=== PATIENT | male | born 2000 | race Caucasian/White ===

== ENCOUNTER 2020-04-19 08:20 | Outpatient (REF) | payer OTHER, SELFPAY | END 2020-04-19 08:21 | disposition home or self-care (01) | LOC: HO.LAB 08:20 | PROVIDERS: Visit Provider Internal Medicine | DX: Z20.822 Contact with and (suspected) exposure to COVID-19 (principal) | CPT/HCPCS: 36415; C9803; U0003; U0005 ==

== ENCOUNTER 2020-05-03 11:17 | Emergency (ER) | payer OTHER, SELFPAY ==
[2020-05-03 11:20] VITALS: BP 136/82; PULSE 78; RESP 16; TEMP 36.7; O2SAT 99; BMI 27.4
--- NOTE | 2020-05-03 12:10 | ED_ITS ---
HPI - General Adult General Chief complaint: General Medical Stated complaint: SORE THROAT Time Seen by Provider: 05/03/20 11:31 Source: patient Mode of arrival: ambulatory History of Present Illness HPI narrative: 19-year-old male to the ED complaining of sore throat x1 week. Also requesting asymptomatic STI testing. Admits is sexually active with multiple partners, states he just wants to make sure he is safe. Denies fever, chills, ear pain, difficulty swallowing/handling secretions, decreased p.o. intake, STI symptoms including penile discharge, testicular or penile pain, dysuria/hematuria, lesions Related Data Previous Rx's Medication Instructions Recorded penicillin V potassium 500 mg PO BID 10 Days #20 tab 05/03/20 Allergies Allergy/AdvReac Type Severity Reaction Status Date / Time No Known Allergies Allergy Unverified 11/02/19 16:57 [No Known Allergies*] Review of Systems Review of Systems: Constitutional: No Fever, No Chills ENT/Mouth: No Ear Pain, No Nasal Congestion, No Sinus Pain, No Hoarseness, +sore throat, No Rhinorrhea, No Swallowing Difficulty Cardiovascular: No Chest Pain, No SOB Respiratory: No Cough Gastrointestinal: No Nausea, No Vomiting Genitourinary: No Dysuria, No Urinary Frequency, No Hematuria, no penile/scrotal pain, no penile lesions, no penile discharge Musculoskeletal: No joint pain Yes all other systems are reviewed and are negative [facility] Past Medical History Attestation statement: The following information was validated with the patient. Medical History (Updated 05/03/20 @ 12:12 by CARMEN Taylor) Heart murmur Surgical History (Updated 05/03/20 @ 11:24 by Karen Jay) History of open heart surgery Social History Social History Advance Directives: No Advance Directives Information Provided: No Physical Exam Vital Signs: Vital Signs: Last Vital Signs Temp 98.1 F 05/03/20 11:20 Pulse 78 05/03/20 11:20 Resp 16 05/03/20 11:20 BP 136/82 05/03/20 11:20 Pulse Ox 99 05/03/20 11:20 Body Mass Index 27.4 Const: General: cooperative and healthy appearing Orientation/consciousness: patient oriented x3 Limitations: no limitations HENMT: Head: Yes normal to inspection Ears: hearing grossly normal bilaterally, external ears normal and TM's normal bilaterally General nose exam: Normal external nose present Face and sinus: Yes normal facial exam Mouth: Normal oral and palatal mucosa present Throat: Yes uvula midline, Yes abnormal tonsil (Bilateral tonsillar swelling and erythema), No peritonsillar mass, No uvula laterally displaced and No uvular edema Eyes: General: appearance normal, both eyes and all related structures EOM: EOMs intact bilaterally Neck: Neck: Yes normal visual inspection, Yes supple and Yes lymphadenopathy (Submandibular) Resp: Effort & Inspection: normal respiratory effort and no stridor Auscultation: no wheezes Cardio: Rate: regular rate : Other: deferred Skin: Rashes: no rashes Wounds: no wounds Neuro: General: patient oriented x3 Extrem: General: Yes normal to inspection Course Course Course Narrative: -UA negative -1300--ED care transferred to [place] [facility] pending COVID-19 results Medical Decision Making [facility] Narrative Medical decision making narrative: 19-year-old male to the ED complaining of sore throat x1 week. Also requesting asymptomatic STI testing. On exam VSS, NAD/well-appearing, physical exam consistent with strep pharyngitis. Will treat with antibiotics. No uvular deviation or evidence of [employer] Plan: Rapid strep, COVID-19, STI testing per request Lab Data Labs: Lab Results 05/03/20 Range/Units 12:10 Urine Color YELLOW Urine Appearance CLEAR Urine pH 5.5 (5.0-8.0) Ur Specific [place] 1.025 (1.005-1.025) Urine Protein NEG (NEG-TRACE) MG/DL Urine Glucose (UA) NEG (NEG) MG/DL Urine Ketones NEG (NEG) MG/DL Urine Blood NEG (NEG) Urine Nitrite NEG (NEG) Ur Leukocyte Esterase NEG (NEG) Discharge Plan Discharge Clinical Impression: Pharyngitis Instructions: Strep Throat (ED) Additional Instructions: Penicillin as antibiotic that will treat strep throat, take as prescribed It is important that you stay hydrated. Take Tylenol and Motrin at home for fever/inflammation You were tested for gonorrhea and chlamydia today in the ED, the results should be back in a couple days, you will be contacted if anything is positive. You should go to [facility] for further STI testing Prescriptions: New penicillin V potassium 500 mg tablet 500 mg PO BID 10 Days Qty: 20 RF: 0 Referrals: Lv Gonzalez MD [Primary Care Provider] - 2 days
[2020-05-03 12:32] LABS: Glucose Urine UA NEG (NEG); Leukocyte Esterase Urine NEG (NEG); Nitrite Urine NEG (NEG); PH 5.5 (5.0-8.0); Specific Gravity - Urine 1.025 (1.005-1.025); Urine Blood NEG (NEG); Urine Ketones NEG (NEG); Urine Protein NEG (NEG-TRACE)
[2020-05-03 12:37] LABS: Appearance Urine CLEAR; Color Urine YELLOW
[2020-05-03] MEDS: Penicillin V Potassium 250 MG TABLET 500 MG PO (12:52)
--- NOTE | 2020-05-03 14:22 | PC.NURSE ---
This RN recieved call from lab who states wrong swab used to collect COVID specimen, Pt called to make aware of new swab needing to be obtained, no answer with contact number in chart.
[2020-05-03 15:15] LABS: CT PCR NOT DETECTED (Not Detect.); NG PCR NOT DETECTED (Not Detect.)
--- NOTE | 2020-05-03 16:34 | PC.NURSE ---
This RN called again and pt aware of new testing needed for COVID swab
== END 2020-05-03 13:29 | disposition home or self-care (01) ==
PROVIDERS: Physician Assistant; Emergency Provider Emergency Medicine Emergency Medical Services; PCP Pediatrics
DX: J02.9 Acute pharyngitis, unspecified (principal); Z11.3 Encounter for screening for infections with a predominantly sexual mode of transmission; F20.9 Schizophrenia, unspecified
CPT/HCPCS: 36415; 81003; 87071; 87491; 87591; 87635; 87880; 99283

== ENCOUNTER 2020-05-07 01:09 | Emergency (ER) | payer OTHER, SELFPAY ==
[2020-05-07] VITALS (10 sets, daily range): BP systolic 123–136; BP diastolic 65–78; PULSE 82–156; RESP 16–24; TEMP 36.6; O2SAT 95–99; BMI 29.0
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
[2020-05-07] MEDS: LORazepam 2 MG/ML VIAL IM (02:06)
[2020-05-07] MEDS: Haloperidol Lactate 5 MG/ML VIAL IM (02:06)
[2020-05-07] MEDS: diphenhydrAMINE HCL 50 MG/ML VIAL IM (02:06)
--- NOTE | 2020-05-07 02:08 | PC.NURSE ---
Patient medicated at 206 with Haldol 5 mg, Ativan 2 mg, and benadryl 50 mg per MD order.
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
--- NOTE | 2020-05-07 04:45 | PC.NURSE ---
[facility] faxed and called. [facility] rep stated that someone would be here to evaluate the PT in the morning.
--- NOTE | 2020-05-07 07:45 | PC.NURSE ---
Addendum entered by Peace Oconnell 05/07/20 10:22: note entered under wrong RN this RN wrote note Original Note: PT WAITING FOR [facility] EVALUATION, STATES HE WANTS TO LEAVE.
--- NOTE | 2020-05-07 11:33 | PC.NURSE ---
seen by care team waiting for plan
--- NOTE | 2020-05-07 13:22 | MHC.CARE ---
0930 CARE Team met with patient in bed 8 in the ED, he was alert and oriented, engaged to a point--he did answer questions but briefly without details. In speaking about the events of last night, he stated that he may have said something concerning to the person who called the police, would not elaborate but was surprised that the police came to his house when he was in bed and made him leave. Patient said this is an ex girlfriend and she is unstable. He denied having any suicidal thoughts, plans or intention; said he wants to live. Admitted having a history of self-harming and suicidal thinking as a youth, several years ago. Currently patient is engaged in therapy though [facility] in [place], does not have a psychiatrist, is not interested in medication. Denied being under the influence of drugs or alcohol yesterday, there was no toxicology results. Collateral calls to [facility] and to patient?s father to obtain history and ask about recent concerns. Patient called crisis for support on 05/02/20, appears to have been calm and thoughtful discussed coping skills with clinician. Call to patient?s father ([phone]) who stated that he does not have concerns about his son's mental health, has not made any statements or done anything concerning; there are no guns in the home. In addition, he reported that his son has never personally met the woman, she lives in [place] they talk on the phone and text frequently. He was very distressed about how they were treated by the police, said they were unnecessarily rough and cruel to his son. Recommendation is for discharge to home, call [facility] for support or return to the ED if needed. Updated ED provider.
== END 2020-05-07 12:08 | disposition home or self-care (01) ==
PROVIDERS: Emergency Provider Emergency Medicine
DX: F32.9 Major depressive disorder, single episode, unspecified (principal); R45.851 Suicidal ideations; Z91.5 Personal history of self-harm; F20.9 Schizophrenia, unspecified; F43.10 Post-traumatic stress disorder, unspecified
CPT/HCPCS: 96372; 99285; J1200; J2060

== ENCOUNTER 2020-06-01 22:19 | Emergency (ER) | payer OTHER, SELFPAY ==
--- NOTE | ~2020-06-01 | XR_ITS ---
EXAMINATION: XR SHOULDER, RIGHT CLINICAL INFORMATION: Right shoulder pain. COMPARISON: None TECHNIQUE: AP external rotation, Grashey, scapular Y, and axillary views of the right shoulder. FINDINGS: The bones and soft tissues are normal. No fracture. Glenohumeral and acromioclavicular alignment is anatomic with normal joint space. No abnormal soft tissue calcifications. XR/XR shoulder RT min 2V IMPRESSION: Unremarkable examination.
--- NOTE | ~2020-06-01 | XR_ITS ---
EXAMINATION: XR CERVICAL SPINE CLINICAL INFORMATION: Neck and shoulder pain. COMPARISON: None TECHNIQUE: 3 views of the cervical spine were obtained. FINDINGS: Straightening of the normal cervical lordosis, which may be positional or related to muscular spasm. No acute fracture or subluxation. Normal atlantoaxial alignment. No loss of vertebral body or intervertebral disc height. No lytic or blastic osseous lesion. No abnormal soft tissue calcification. Unremarkable prevertebral soft tissues. XR/XR cervical spine 2V IMPRESSION: Straightening of the normal cervical lordosis, which may be positional or related to muscular spasm.
[2020-06-01 22:32] VITALS: BP 112/61; PULSE 76; RESP 16; TEMP 36.6; O2SAT 97; BMI 34.3
[2020-06-01 23:43] VITALS: BP 104/60; PULSE 77; RESP 16; TEMP 36.6; O2SAT 98
--- NOTE | 2020-06-01 23:55 | ED.EXTPRO ---
HPI - Extremity Problem General Chief complaint: Extremity Problem Stated complaint: sholder pain Time Seen by Provider: 06/01/20 23:54 Source: patient Mode of arrival: ambulatory Limitations: no limitations History of Present Illness HPI Narrative: 20-year-old male with past medical history of cardiac murmur present since childhood and schizophrenia presents with right shoulder and neck spasms. He does not report any trauma, or injury, denies repetitive motion. States that he is normally sedentary and occasionally has shoulder pain that pulls up into his neck. He is slow to respond to certain questions, but answers questions thoughtfully. He has full range of motion to all extremities, and denies loss of strength. He denies jaw pain, chest pain, chest pressure, palpitations, shortness of breath, shortness of breath on exertion, numbness, tingling, and any other concerning symptoms. MD Complaint: extremity pain Onset (ago): month(s) Pain Consistency: intermittent Location: right and upper extremity Severity scale (1-10): 7 Quality: stabbing and aching Radiation: proximal Relieving factors: nothing Exacerbating factors: palpation Associated symptoms: denies other symptoms Related Data Previous Rx's Medication Instructions Recorded penicillin V potassium 500 mg PO BID 10 Days #20 tab 05/03/20 cyclobenzaprine 10 mg PO TID PRN #14 tab 06/02/20 Allergies Allergy/AdvReac Type Severity Reaction Status Date / Time No Known Allergies Allergy Verified 06/01/20 22:31 [No Known Allergies*] Review of Systems Review of Systems: Constitutional: No Fever, No Chills ENT/Mouth: No Ear Pain, No Hoarseness, No sore throat Eyes: No Eye Pain, No Swelling, No Redness, No Foreign Body Cardiovascular: No Chest Pain, No SOB Respiratory: No Cough, No Dyspnea Gastrointestinal: No Nausea, No Vomiting, No Diarrhea, No abdominal Pain Genitourinary: No Dysuria, No Hematuria Musculoskeletal: positive neck and right shoulder pain, No Myalgias, No Joint Swelling Skin: No Skin lacerations, No rash Neuro: No Weakness, No Numbness, No Paresthesias, No Loss of Consciousness, No Dizziness, No Headache Psych: No Anxiety/Panic, No Depression Heme/Lymph: no easy bruising, no Lymphadenopathy Endocrine: No Polyuria, No Polydipsia Yes all other systems are reviewed and are negative [facility] Past Medical History Attestation statement: The following information was validated with the patient. Source: old records reviewed Medical History Heart murmur Schizophrenia Surgical History History of open heart surgery Social History Social History Alcohol intake: unknown Smoking Status: Unknown if ever smoked Advance Directives: No Advance Directives Information Provided: No Physical Exam Vital Signs: Vital Signs: Last Vital Signs Temp 97.9 F 06/01/20 23:43 Pulse 77 06/01/20 23:43 Resp 16 06/01/20 23:43 BP 104/60 06/01/20 23:43 Pulse Ox 98 06/01/20 23:43 Body Mass Index 34.3 Appearance: Alert. Oriented X3. No acute distress. Eyes: Pupils equal, round and reactive to light. ENT: Pharynx normal. Neck: Normal inspection. Neck supple. CVS: Normal heart rate and rhythm. Pulses normal. Respiratory: No respiratory distress. Breath sounds normal. Abdomen: Soft and nontender. Skin: Skin warm and dry. Normal skin color. Normal skin turgor. Extremities: No lower extremity edema. Full range of motion to all extremities, strength 5/5. Neuro: No motor deficit. No sensory deficit. Cranial nerves 2-12 intact. No focal neural deficits. Course Course Course Narrative: 20-year-old male with past medical history of childhood murmur, and schizophrenia presents with right shoulder pain radiating up to his neck. Describes it as a spasming feeling at times. Will order x-ray of cervical spine and right shoulder. Cervical spine and shoulder x-rays are negative for acute findings requiring emergent intervention. Does indicate spasming, will order cyclobenzaprine to help with spasms. Patient verbalized understanding of and agrees plan of care discharge home. MDM - Extremity (Nontraumatic) MDM Narrative Medical decision making narrative: Muscular strain, disc degeneration Medical Records Attestation: I reviewed the patient's medical records. Imaging Data Cervical spine x-ray: Attestation: I personally reviewed and interpreted this imaging study as follows: Radiologist's impression: EXAMINATION: XR CERVICAL SPINE CLINICAL INFORMATION: Neck and shoulder pain. COMPARISON: None TECHNIQUE: 3 views of the cervical spine were obtained. FINDINGS: Straightening of the normal cervical lordosis, which may be positional or related to muscular spasm. No acute fracture or subluxation. Normal atlantoaxial alignment. No loss of vertebral body or intervertebral disc height. No lytic or blastic osseous lesion. No abnormal soft tissue calcification. Unremarkable prevertebral soft tissues. XR/XR cervical spine 2V IMPRESSION: Straightening of the normal cervical lordosis, which may be positional or related to muscular spasm. Right shoulder x-ray: Attestation: I personally reviewed and interpreted this imaging study as follows: Radiologist's impression: EXAMINATION: XR SHOULDER, RIGHT CLINICAL INFORMATION: Right shoulder pain. COMPARISON: None TECHNIQUE: AP external rotation, Grashey, scapular Y, and axillary views of the right shoulder. FINDINGS: The bones and soft tissues are normal. No fracture. Glenohumeral and acromioclavicular alignment is anatomic with normal joint space. No abnormal soft tissue calcifications. XR/XR shoulder RT min 2V IMPRESSION: Unremarkable examination. Discharge Plan Discharge Clinical Impression: Muscle spasm Patient Disposition: Home, Self-Care Instructions: Shoulder Pain (ED), Acute Neck Pain (ED) Additional Instructions: You were evaluated for right shoulder pain radiating up to the neck. X-rays are normal, did not show any indication of disc degeneration, fracture, or dislocation. This could be muscle spasms. We will treat you with cyclobenzaprine. This medication is a muscle relaxer. This medication may decrease reaction time, increased risk for drowsiness, and falls. Do not drive or operate machinery while taking this medication. You may consider following up with your primary care provider for physical therapy referral. Thank you for choosing this emergency department for evaluation. Please follow-up with primary care physician as needed. Return to the emergency department for any new, concerning, or worsening symptoms. Prescriptions: New cyclobenzaprine 10 mg tablet 10 mg PO TID PRN (Reason: muscle spasm) Qty: 14 RF: 0 No Action penicillin V potassium 500 mg tablet 500 mg PO BID 10 Days Qty: 20 RF: 0
== END 2020-06-02 00:18 | disposition home or self-care (01) ==
PROVIDERS: Emergency Provider Emergency Medicine; PCP Pediatrics
DX: M62.838 Other muscle spasm (principal); M25.511 Pain in right shoulder; M54.2 Cervicalgia
CPT/HCPCS: 72040; 73030; 99284

== ENCOUNTER 2020-11-22 01:00 | Emergency (ER) | payer OTHER, SELFPAY ==
[2020-11-22 01:06] VITALS: BP 150/78; O2SAT 96
[2020-11-22 01:11] VITALS: BP 130/65; PULSE 93; RESP 16; TEMP 37.2; O2SAT 97; BMI 27.4
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
== END 2020-11-22 01:50 | disposition home or self-care (01) ==
PROVIDERS: Emergency Provider Emergency Medicine
DX: S01.511A Laceration without foreign body of lip, initial encounter (principal); Y04.2XXA Assault by strike against or bumped into by another person, initial encounter; Y93.9 Activity, unspecified; Y92.410 Unspecified street and highway as the place of occurrence of the external cause; Y99.9 Unspecified external cause status
CPT/HCPCS: 99283; 99284

== ENCOUNTER 2021-02-26 21:37 | Emergency (ER) | payer OTHER, SELFPAY ==
[2021-02-26 21:49] VITALS: BP 138/87; PULSE 88; RESP 17; TEMP 37.2; O2SAT 99; BMI 31.7
[2021-02-26 21:54] LABS: Glucose, Whole Blood 79 mg/dL (60-115)
[2021-02-26 22:19] LABS: COVID-19 Test Negative (Negative)
[2021-02-26 22:21] LABS: Amphetamine Screen Urine Not Detected (Not Detect); Barbiturates, Urine Not Detected (Not Detect); Benzodiazepines Screen Urine Not Detected (Not Detect); Cannabinoid Screen Urine POSITIVE (Not Detect); Cocaine Screen Urine Not Detected (Not Detect); Fentanyl, urine Not Detected (Not Detect); Opiate Screen Urine Not Detected (Not Detect); Phencyclidine Screen Urine Not Detected (Not Detect)
[2021-02-26 22:26] LABS: MANUAL DIFF FLAG NO
[2021-02-26 22:29] LABS: Basophils Percent Auto 0.5 % (0-2); Eosinophils Absolute Auto 0.1 X10*3/uL (0.0-0.4); Eosinophils Percent Auto 0.9 % (0-4); Hematocrit 47.1 % (42.0-52.0); Hemoglobin 15.9 g/dl (14.0-18.0); Imm Gran Abs Auto 0.02 X10*3/uL (0.00-0.03); Imm Gran Pct Auto 0.2 % (0.0-0.4); Lymphocytes Absolute Auto 1.8 X10*3/uL (1.2-4.9); Lymphocytes Percent Auto 21.6 % (20-40); Mean Corpuscular HGB Conc 33.8 g/dl (31.0-36.0); Mean Corpuscular Volume 85.8 fL (80.0-98.0); Mean Platelet Volume 10.7 fL (9.4-12.4); Monocytes Absolute Auto 0.6 X10*3/uL (0.1-1.2); Monocytes Percent Auto 7.4 % (2-11); Neutrophils Absolute Auto 5.6 x10*3/uL (2.0-8.3); Neutrophils Percent Auto 69.4 % (45-73); Platelet Count 266 X10*3/uL (160-400); Red Blood Count 5.49 X10*6/uL (4.60-5.80); Red Cell Distribution Width 12.8 % (11.0-16.0); White Blood Count 8.1 X10*3/uL (4.8-10.8)
--- NOTE | 2021-02-26 22:31 | ED.PSYCH ---
HPI - Psych General Chief Complaint: Psychiatric Symptoms Stated Complaint: Psyc Eval Time Seen by Provider: 02/26/21 22:31 Source: patient Mode of arrival: EMS Limitations: no limitations History of Present Illness HPI Narrative: This is a 20-year-old male presents to the emergency department with a chief complaint of agitation. Patient tells me that he lives at home with his father, today use feeling upset, his brother who does not live with him came over noted that patient had self-inflicted wounds to his left ventral forearm, patient tells me that recently he has been feeling ?numb ?so he decided to cut himself so he could feel something. Tells me he has a history of schizo affective disorder, PTSD, anxiety and depression. He tells me that he is not suicidal or homicidal. He denies visual, auditory and tactile hallucinations. He denies drug, alcohol and tobacco use. No medical complaints at this time MD complaint: feels depressed and anxiety Onset (ago): day(s) (1) Duration: constant History of same: Yes Relieving factors: other (Cutting.) Exacerbating factors: none Associated psychiatric symptoms: none Associated symptoms: denies other symptoms Treatments prior to arrival: none Related Data Previous Rx's Medication Instructions Recorded penicillin V potassium 500 mg 500 mg PO BID 10 Days #20 tab 05/03/20 tablet cyclobenzaprine 10 mg tablet 10 mg PO TID PRN #14 tab 06/02/20 Allergies Allergy/AdvReac Type Severity Reaction Status Date / Time No Known Allergies Allergy Verified 06/01/20 22:31 [No Known Allergies*] Review of Systems Review of Systems: Constitutional : No Fever, No Chills ENT/Mouth : No sore throat, No Rhinorrhea Eyes: No Eye Pain, No Swelling, No Redness Cardiovascular : No Chest Pain, No SOB Respiratory : No Cough, No Sputum Gastrointestinal : No Nausea, No Vomiting, No Diarrhea, No abdominal Pain Genitourinary : No Dysuria, No Hematuria Musculoskeletal : No joint pain, No Myalgias, No Joint Swelling Skin : No Skin Lesions, No rash Neuro : No Weakness, No Numbness Psych : No Anxiety, No Depression, No SI/HI/AH/VH All other systems reviewed and are negative Yes all other systems are reviewed and are negative PMFSH Past Medical History Attestation statement: The following information was validated with the patient. Source: old records reviewed and nursing notes reviewed Medical History Heart murmur Schizophrenia Surgical History History of open heart surgery Social History Social History Alcohol intake: unknown Patient Tobacco Use Status: Never used Tobacco Advance Directives: No Physical Exam Vital Signs: Vital Signs: Last Vital Signs Temp 98.9 F 02/26/21 21:49 Pulse 88 02/26/21 21:49 Resp 17 02/26/21 21:49 BP 138/87 02/26/21 21:49 Pulse Ox 99 02/26/21 21:49 BMI result Body Mass Index 31.7 Vital signs stable Appearance: Alert.? Oriented X3.? No acute distress.? Head: Normocephalic, atraumatic, no step-offs or deformities Eyes: Pupils equal, round and reactive to light.? ENT: Pharynx normal.? Neck: Normal inspection.? Neck supple.? CVS: Normal heart rate and rhythm.? Pulses normal.? Respiratory: No respiratory distress.? Breath sounds normal.? Abdomen: Soft and nontender.? Skin: Skin warm and dry.? Normal skin color.? Normal skin turgor.? Extremities: No lower extremity edema.? No calf ttp. 5/5 strength to bilateral upper and lower extremities Back: No midline tenderness, no C-spine tenderness, full range of motion, no CVA tenderness bilaterally Neuro: Oriented X 3.? No motor deficit.? No sensory deficit. Cranial nerves 2-12 intact. Course Reevaluation(s) Reevaluation #1: No leukocytosis, no anemia, no acute electrolyte abnormalities, point of care within normal limits, urine toxicology positive for marijuana, COVID negative. At this time patient will be placed in physician observation to allow more time for evaluation by the behavioral health team. At time that observation was started patient was, cooperative. Denying SI and HI. Vital signs are stable. Physical exam unchanged from initial. Will continue to monitor Time: 22:36 MDM - Psych MDM Narrative Medical decision making narrative: [age] yo m presents via ambulance feeling aggitated, tells me brother called ems lyn[place] he cut himself tells me he feels numb and cut himself so he could feel something. Hx schizoaffective disorder, PTSD, anxiety, depression. He tells me he is not on medication. He is not followed by psychiatrist or therapist. No medical complaints. Physical examination benign cranial nerves 2-12 intact. Plan at this time is to obtain basic labs, urine, toxicology, COVID Medical Records Attestation: I reviewed the patient's medical records. Lab Data Attestation: I reviewed the patient's lab results. Result diagrams: 02/26/21 22:21 02/26/21 22:21 Labs: Lab Results 02/26/21 02/26/21 02/26/21 Range/Units 21:49 21:58 21:58 WBC (4.8-10.8) X10*3/uL RBC (4.60-5.80) X10*6/uL Hgb (14.0-18.0) g/dl Hct (42.0-52.0) % MCV (80.0-98.0) fL MCH (27.0-33.0) pg MCHC (31.0-36.0) g/dl RDW (11.0-16.0) % Plt Count (160-400) X10*3/uL MPV (9.4-12.4) fL Immature Gran % (Auto) (0.0-0.4) % Neut % (Auto) (45-73) % Lymph % (Auto) (20-40) % [place] % (Auto) (2-11) % Eos % (Auto) (0-4) % Baso % (Auto) (0-2) % Lymph # (Auto) (1.2-4.9) X10*3/uL [place] # (Auto) (0.1-1.2) X10*3/uL Eos # (Auto) (0.0-0.4) X10*3/uL Baso # (Auto) (0.0-0.2) X10*3/uL Abs Immat Gran (auto) (0.00-0.03) X10*3/uL Absolute Neuts (auto) (2.0-8.3) x10*3/uL Absolute Nucleated RBC (0.0-0.012) X10*3/uL Nucleated RBC % (auto) (0.0-0.2) /100WBC POC Glucose 79 (60-115) mg/dL Urine Opiates Screen Not Detected (Not Detect) Urine Fentanyl Screen Not Detected (Not Detect) Ur Barbiturates Screen Not Detected (Not Detect) Ur Phencyclidine Scrn Not Detected (Not Detect) Ur Amphetamines Screen Not Detected (Not Detect) U Benzodiazepines Scrn Not Detected (Not Detect) Urine Cocaine Screen Not Detected (Not Detect) U Marijuana (THC) Screen POSITIVE H (Not Detect) COVID-19 ([facility]) Negative (Negative) COVID-19 Clin Com See Note 02/26/21 Range/Units 22:21 WBC 8.1 (4.8-10.8) X10*3/uL RBC 5.49 (4.60-5.80) X10*6/uL Hgb 15.9 (14.0-18.0) g/dl Hct 47.1 (42.0-52.0) % MCV 85.8 (80.0-98.0) fL MCH 29.0 (27.0-33.0) pg MCHC 33.8 (31.0-36.0) g/dl RDW 12.8 (11.0-16.0) % Plt Count 266 (160-400) X10*3/uL MPV 10.7 (9.4-12.4) fL Immature Gran % (Auto) 0.2 (0.0-0.4) % Neut % (Auto) 69.4 (45-73) % Lymph % (Auto) 21.6 (20-40) % [place] % (Auto) 7.4 (2-11) % Eos % (Auto) 0.9 (0-4) % Baso % (Auto) 0.5 (0-2) % Lymph # (Auto) 1.8 (1.2-4.9) X10*3/uL [place] # (Auto) 0.6 (0.1-1.2) X10*3/uL Eos # (Auto) 0.1 (0.0-0.4) X10*3/uL Baso # (Auto) 0.0 (0.0-0.2) X10*3/uL Abs Immat Gran (auto) 0.02 (0.00-0.03) X10*3/uL Absolute Neuts (auto) 5.6 (2.0-8.3) x10*3/uL Absolute Nucleated RBC 0.000 (0.0-0.012) X10*3/uL Nucleated RBC % (auto) 0.0 (0.0-0.2) /100WBC POC Glucose (60-115) mg/dL Urine Opiates Screen (Not Detect) Urine Fentanyl Screen (Not Detect) Ur Barbiturates Screen (Not Detect) Ur Phencyclidine Scrn (Not Detect) Ur Amphetamines Screen (Not Detect) U Benzodiazepines Scrn (Not Detect) Urine Cocaine Screen (Not Detect) U Marijuana (THC) Screen (Not Detect) COVID-19 ([facility]) (Negative) COVID-19 Clin Com Critical Care Time Critical Care Time Critical Care Time: No Discharge Plan Discharge Clinical Impression: Acute anxiety, Depression Patient Disposition: Still a Patient Prescriptions: No Action penicillin V potassium 500 mg tablet 500 mg PO BID 10 Days Qty: 20 RF: 0 cyclobenzaprine 10 mg tablet 10 mg PO TID PRN (Reason: muscle spasm) Qty: 14 RF: 0
[2021-02-26 22:46] LABS: Ethanol < 10 mg/dL
[2021-02-26 22:49] LABS: Anion Gap 11 (12-20); Blood Urea Nitrogen 10 mg/dL (9-16); Calcium 9.2 mg/dL (8.4-10.2); Carbon Dioxide 23 mmol/L (22-29); Chloride 107 mmol/L (96-108); Creatinine Clr Calc Pharmacy 133.8; Estimated Glomerular Filt Rate > 60; Glucose Random 93 mg/dL (60-115); Potassium 3.9 mmol/L (3.3-5.1); Sodium 137 mmol/L (135-145)
[2021-02-26 23:18] VITALS: BP 126/62; PULSE 76; RESP 18; TEMP 37.1; O2SAT 98
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
--- NOTE | 2021-02-27 07:22 | PC.NURSE ---
Report received. PT currently sleeping, respirations even and unlabored, in no apparent distress. PT is waiting to be seen by N.
[2021-02-27 08:06] VITALS: BP 120/62; PULSE 70; RESP 18; TEMP 36.8; O2SAT 96
--- NOTE | 2021-02-27 08:33 | PC.NURSE ---
PT reports that he has an appointment today at 11am at his home to get outpatient services that would help him with medications and treatment. PT asking if he will be home in time for that. Plan of care explained, pt states he unsure of what company is coming to see him and has no contact information.
== END 2021-02-27 09:36 | disposition home or self-care (01) ==
PROVIDERS: Emergency Provider Emergency Medicine
DX: R45.1 Restlessness and agitation (principal); F41.9 Anxiety disorder, unspecified; F32.A Depression, unspecified; Z20.822 Contact with and (suspected) exposure to COVID-19; R45.851 Suicidal ideations; F25.9 Schizoaffective disorder, unspecified; F43.10 Post-traumatic stress disorder, unspecified; F12.90 Cannabis use, unspecified, uncomplicated
CPT/HCPCS: 36415; 80048; 80307; 82077; 82947; 85025; 87635; 99283; 99285

== ENCOUNTER 2021-02-27 12:49 | Emergency (ER) | payer OTHER, SELFPAY ==
[2021-02-27 13:39] VITALS: BP 132/68; PULSE 85; RESP 16; TEMP 36.7; O2SAT 96; BMI 34.3
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
[2021-02-27 14:16] VITALS: BP 132/68; PULSE 85; RESP 16; TEMP 36.7; O2SAT 96
[2021-02-27 14:56] LABS: Amphetamine Screen Urine Not Detected (Not Detect); Barbiturates, Urine Not Detected (Not Detect); Benzodiazepines Screen Urine Not Detected (Not Detect); Cannabinoid Screen Urine POSITIVE (Not Detect); Cocaine Screen Urine Not Detected (Not Detect); Fentanyl, urine Not Detected (Not Detect); Opiate Screen Urine Not Detected (Not Detect); Phencyclidine Screen Urine Not Detected (Not Detect)
[2021-02-27 15:09] LABS: COVID-19 Test Negative (Negative)
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
[2021-02-27 17:39] VITALS: BP 110/49; PULSE 67; RESP 15; TEMP 36.8; O2SAT 98
[2021-02-28 00:24] VITALS: BP 119/55; PULSE 64; RESP 20; TEMP 36.9; O2SAT 98
--- NOTE | 2021-02-28 05:51 | PC.NURSE ---
Patient slept through the night, no distress observed/reported, behavior appropriate and non concerning at this time, patient is currently not on any medication, patient was assessed by [facility] in the community with disposition section 12 inpatient bed search per care team report, VSS, will continue to monitor.
--- NOTE | 2021-02-28 07:18 | PC.NURSE ---
patient appears in no distress at present, respirations are even and unlabored patient appears in no distress.
[2021-02-28 09:41] LABS: Basophils Percent Auto 0.3 % (0-2); Eosinophils Absolute Auto 0.1 X10*3/uL (0.0-0.4); Eosinophils Percent Auto 0.8 % (0-4); Hematocrit 50.7 % (42.0-52.0); Hemoglobin 17.3 g/dl (14.0-18.0); Imm Gran Abs Auto 0.01 X10*3/uL (0.00-0.03); Imm Gran Pct Auto 0.1 % (0.0-0.4); Lymphocytes Absolute Auto 1.4 X10*3/uL (1.2-4.9); Lymphocytes Percent Auto 18.9 % (20-40); MANUAL DIFF FLAG SCAN; Mean Corpuscular HGB Conc 34.1 g/dl (31.0-36.0); Mean Corpuscular Hemoglobin 29.2 pg (27.0-33.0); Mean Corpuscular Volume 85.5 fL (80.0-98.0); Monocytes Absolute Auto 0.6 X10*3/uL (0.1-1.2); Monocytes Percent Auto 7.7 % (2-11); Neutrophils Absolute Auto 5.2 x10*3/uL (2.0-8.3); Neutrophils Percent Auto 72.2 % (45-73); PLT CLUMP 1; Red Blood Count 5.93 X10*6/uL (4.60-5.80); SCAN SMEAR FLAG 1
--- NOTE | 2021-02-28 09:45 | PC.NURSE ---
asked client permission to speak to Frank- client declined
[2021-02-28 09:58] LABS: Alanine Aminotransferase 18 U/L (0-40); Albumin Level 4.4 g/dL (3.5-5.0); Alkaline Phosphatase 170 U/L (39-117); Anion Gap 9 (12-20); Aspartate Amino Transferase 15 U/L (5-37); Bilirubin Direct 0.3 mg/dL (0.0-0.5); Bilirubin Total 0.6 mg/dL (0.0-1.0); Blood Urea Nitrogen 12 mg/dL (9-16); Calcium 9.5 mg/dL (8.4-10.2); Carbon Dioxide 23 mmol/L (22-29); Chloride 108 mmol/L (96-108); Creatinine Clr Calc Pharmacy 131.5; Estimated Glomerular Filt Rate > 60; Glucose Random 93 mg/dL (60-115); Potassium 4.3 mmol/L (3.3-5.1); Sodium 136 mmol/L (135-145); Total Protein 6.9 g/dL (6.5-8.0)
[2021-02-28 09:59] LABS: Platelet Count 195 X10*3/uL (160-400); White Blood Count 7.2 X10*3/uL (4.8-10.8)
[2021-02-28 10:00] LABS: SLIDE REVIEW VERIFIED
--- NOTE | 2021-02-28 11:00 | MHC.CARE ---
CARE Team received a call from Pts brother who is upset regarding Pts care related to [facility]. CARE Team provided information and support to Pts brother.
== END 2021-02-28 13:06 | disposition other institution (70) ==
PROVIDERS: Physician Assistant; Emergency Provider Emergency Medicine
DX: R45.851 Suicidal ideations (principal); F32.A Depression, unspecified; F41.8 Other specified anxiety disorders; Z20.822 Contact with and (suspected) exposure to COVID-19; F20.9 Schizophrenia, unspecified; F43.10 Post-traumatic stress disorder, unspecified; F12.90 Cannabis use, unspecified, uncomplicated
CPT/HCPCS: 36415; 80048; 80076; 80307; 85025; 87635; 99284; 99285

== ENCOUNTER 2021-03-28 18:19 | Inpatient (IN) | payer MEDICAID, OTHER, SELFPAY ==
[2021-03-28 18:27] VITALS: BP 127/76; PULSE 103; RESP 18; TEMP 37.4; O2SAT 98; BMI 32.5
[2021-03-28] MEDS: Acetaminophen 325 MG TABLET 650 MG PO (18:35)
[2021-03-28 19:19] LABS: COVID-19 Test Negative (Negative); IDNOW Serial# 9DD0AD1C
[2021-03-28 19:20] LABS: Amphetamine Screen Urine Not Detected (Not Detect); Barbiturates, Urine Not Detected (Not Detect); Benzodiazepines Screen Urine Not Detected (Not Detect); Cannabinoid Screen Urine POSITIVE (Not Detect); Cocaine Screen Urine Not Detected (Not Detect); Fentanyl, urine Not Detected (Not Detect); Opiate Screen Urine Not Detected (Not Detect); Phencyclidine Screen Urine Not Detected (Not Detect)
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
[2021-03-28] MEDS: OLANZapine 5 MG TABLET PO (22:43)
[2021-03-28] MEDS: Carbamide Peroxide 6.5% Otic 15 ML DRPBTL 5 DROP EAR-BOTH (22:43)
--- NOTE | 2021-03-29 06:03 | PC.NURSE ---
Patient slept through the night, no distress observed/reported, behavior appropriate and non concerning at this time, medication compliant, [facility] screened during overnight shift, disposition section 12 inpatient bed search, will continue to monitor.
[2021-03-29 06:45] VITALS: BP 138/70; PULSE 70; RESP 18; TEMP 36.7; O2SAT 97
--- NOTE | 2021-03-29 07:02 | PC.NURSE ---
patient appears to remain asleep at present respirations are even and unlabored patient appears in no distress
[2021-03-29] MEDS: OLANZapine 5 MG TABLET PO (20:33)
--- NOTE | 2021-03-30 06:06 | PC.NURSE ---
Patient slept through the night, no distress observed/reported, behavior appropriate and non concerning at this time, medication compliant, disposition per [facility] is section 12 inpatient bed search, will continue to monitor.
--- NOTE | 2021-03-30 07:05 | PC.NURSE ---
patient appears to remain asleep at present respirations are even and unlabored patient appears in no distress
[2021-03-30 16:46] VITALS: BP 104/60; PULSE 77; RESP 18; TEMP 36.4; O2SAT 98
--- NOTE | 2021-03-30 17:00 | PC.NURSE ---
client seems mildly intrusive asking for snacks and miscellaneous items about every 30 minutes.
[2021-03-30] MEDS: OLANZapine 5 MG TABLET PO (20:39)
--- NOTE | 2021-03-31 | ECG_ITS ---
Test Reason : MED CLEARANCE Blood Pressure : / mmHG Vent. Rate : 083 BPM Atrial Rate : 083 BPM P-R Int : 168 ms QRS Dur : 172 ms QT Int : 414 ms P-R-T Axes : 017 -54 046 degrees QTc Int : 486 ms Normal sinus rhythm Right bundle branch block Left anterior fascicular block Bifascicular block Minimal voltage criteria for LVH, may be normal variant ( R in aVL ) Abnormal ECG No previous ECGs available Referred By: Kristin Ott Electronically Signed By:KEYONA DIAZ MD
[2021-03-31 05:53] VITALS: BP 107/57; PULSE 58; RESP 16; TEMP 36.4; O2SAT 99
--- NOTE | 2021-03-31 06:12 | PC.NURSE ---
Patient slept through the night, no distress observed/reported, behavior social, pleasant, and non concerning, medication compliant, disposition per [facility] is section 12 inpatient bed search, patient is pre-accepted to M[facility], VSS, will continue to monitor.
--- NOTE | 2021-03-31 07:06 | PC.NURSE ---
patient appears to remain asleep at present respirations are even and unlabored patient appears in no distress
[2021-03-31 10:19] LABS: MANUAL DIFF FLAG NO
[2021-03-31 10:21] LABS: Basophils Percent Auto 0.5 % (0-2); Eosinophils Absolute Auto 0.1 X10*3/uL (0.0-0.4); Eosinophils Percent Auto 1.7 % (0-4); Hematocrit 49.4 % (42.0-52.0); Hemoglobin 16.6 g/dl (14.0-18.0); Imm Gran Abs Auto 0.01 X10*3/uL (0.00-0.03); Imm Gran Pct Auto 0.2 % (0.0-0.4); Lymphocytes Absolute Auto 1.3 X10*3/uL (1.2-4.9); Lymphocytes Percent Auto 20.6 % (20-40); Mean Corpuscular HGB Conc 33.6 g/dl (31.0-36.0); Mean Corpuscular Hemoglobin 28.8 pg (27.0-33.0); Mean Corpuscular Volume 85.6 fL (80.0-98.0); Mean Platelet Volume 10.2 fL (9.4-12.4); Monocytes Absolute Auto 0.5 X10*3/uL (0.1-1.2); Monocytes Percent Auto 8.2 % (2-11); Neutrophils Absolute Auto 4.4 x10*3/uL (2.0-8.3); Neutrophils Percent Auto 68.8 % (45-73); Platelet Count 231 X10*3/uL (160-400); Red Blood Count 5.77 X10*6/uL (4.60-5.80); Red Cell Distribution Width 13.4 % (11.0-16.0); White Blood Count 6.4 X10*3/uL (4.8-10.8)
[2021-03-31 10:38] LABS: COVID-19 Test Negative (Negative)
[2021-03-31 10:55] LABS: Alanine Aminotransferase 22 U/L (0-40); Albumin Level 4.3 g/dL (3.5-5.0); Alkaline Phosphatase 153 U/L (39-117); Anion Gap 9 (12-20); Aspartate Amino Transferase 15 U/L (5-37); Bilirubin Total 0.4 mg/dL (0.0-1.0); Blood Urea Nitrogen 9 mg/dL (9-16); Calcium 9.3 mg/dL (8.4-10.2); Carbon Dioxide 26 mmol/L (22-29); Chloride 108 mmol/L (96-108); Creatinine Clr Calc Pharmacy 149.5; Estimated Glomerular Filt Rate > 60; Glucose Random 92 mg/dL (60-115); Potassium 4.2 mmol/L (3.3-5.1); Sodium 139 mmol/L (135-145); Total Protein 6.5 g/dL (6.5-8.0)
--- NOTE | 2021-03-31 11:04 | PC.NURSE ---
intrusive and antagonistic, makes quiet provocative statements under his breath to seemingly irritate staff
--- NOTE | 2021-03-31 16:10 | PC.NURSE ---
Nurse to nurse given to m5 staff. pt being admitted to [facility].
[2021-03-31 16:12] VITALS: BP 127/57; PULSE 72; RESP 15; TEMP 37.1; O2SAT 97
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
--- NOTE | 2021-03-31 18:39 | PC.NURSE ---
Patient is alert and oriented x 4 verbalized understanding of admission to 517-2. escorted to via wheelchair, staff, security and belongings
[2021-03-31 19:05] VITALS: BP 134/79; PULSE 79; RESP 18; TEMP 36.5; O2SAT 97
--- NOTE | 2021-03-31 19:13 | ECG_ITS ---
Test Reason : increased qtc Blood Pressure : / mmHG Vent. Rate : 074 BPM Atrial Rate : 074 BPM P-R Int : 170 ms QRS Dur : 154 ms QT Int : 416 ms P-R-T Axes : 022 -40 058 degrees QTc Int : 461 ms Normal sinus rhythm Left axis deviation Right bundle branch block Abnormal ECG When compared with ECG of 31-MAR-2021 13:05, No significant changes seen Referred By: Ismael Persaud Electronically Signed By:KEYONA DIAZ MD
[2021-03-31] MEDS: Acetaminophen 325 MG TABLET 650 MG PO (20:54)
[2021-03-31] MEDS: OLANZapine 10 MG TABLET PO (20:54)
[2021-03-31] MEDS: hydrOXYzine HCL 25 MG TABLET PO (20:56)
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
[2021-04-01 06:00] VITALS: BP 120/56; PULSE 80; RESP 16; TEMP 36.6; O2SAT 98
[2021-04-01 08:51] VITALS: BP 127/59; PULSE 96; RESP 14; TEMP 37.2; O2SAT 97
[2021-04-01 08:52] LABS: Alanine Aminotransferase 20 U/L (0-40); Albumin Level 4.1 g/dL (3.5-5.0); Alkaline Phosphatase 143 U/L (39-117); Anion Gap 13 (12-20); Aspartate Amino Transferase 16 U/L (5-37); Bilirubin Total 0.4 mg/dL (0.0-1.0); Blood Urea Nitrogen 11 mg/dL (9-16); Calcium 8.8 mg/dL (8.4-10.2); Carbon Dioxide 25 mmol/L (22-29); Chloride 106 mmol/L (96-108); Cholesterol 161 mg/dL; Creatinine Clr Calc Pharmacy 145.8; Estimated Glomerular Filt Rate > 60; Glucose Fasting 84 mg/dL (60-99); HDL Cholesterol 36 mg/dL; LDL Cholesterol Calculated 106 mg/dl; Potassium 4.7 mmol/L (3.3-5.1); Sodium 139 mmol/L (135-145); Total Protein 6.3 g/dL (6.5-8.0); Triglycerides 98 mg/dL
[2021-04-01 09:59] LABS: Reflex LDLD? No
[2021-04-01 18:00] VITALS: BP 127/67; PULSE 88; RESP 18; TEMP 37
[2021-04-01] MEDS: OLANZapine 10 MG TABLET PO (21:24)
[2021-04-01] MEDS: Magnesium Hydrox/Alum Hydrox 30 ML ORAL.SUSP PO (22:29)
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
[2021-04-02 06:00] VITALS: BP 94/48; PULSE 62; RESP 16; TEMP 36.8; O2SAT 97
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
[2021-04-02 18:00] VITALS: BP 128/80; PULSE 89; RESP 16; TEMP 36.2; O2SAT 98
[2021-04-02] MEDS: hydrOXYzine HCL 25 MG TABLET PO (18:44)
[2021-04-02] MEDS: OLANZapine 10 MG TABLET PO (20:15)
--- NOTE | 2021-04-03 | ECG_ITS ---
Test Reason : MED CHECK Blood Pressure : / mmHG Vent. Rate : 079 BPM Atrial Rate : 079 BPM P-R Int : 154 ms QRS Dur : 182 ms QT Int : 410 ms P-R-T Axes : 018 -55 052 degrees QTc Int : 470 ms Normal sinus rhythm Right bundle branch block Left anterior fascicular block Bifascicular block Minimal voltage criteria for LVH, may be normal variant ( R in aVL ) Abnormal ECG When compared with ECG of 01-APR-2021 09:23, No significant changes seen Referred By: Jean Paul Myers Electronically Signed By:KEYONA DIAZ MD
[2021-04-03 06:00] VITALS: BP 126/82; PULSE 84; RESP 16; TEMP 36.7; O2SAT 98
[2021-04-03 07:00] VITALS: BMI 34.2
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
[2021-04-03 11:57] VITALS: BP 102/56; PULSE 68; RESP 16; O2SAT 97
[2021-04-03 18:00] VITALS: BP 125/63; PULSE 88; RESP 16; TEMP 36.3; O2SAT 96
[2021-04-03] MEDS: Mineral Oil/Petrolatum,White 106 GM Tube 1 APPL TOPICAL ×2 (19:42→19:43)
[2021-04-03] MEDS: OLANZapine 10 MG TABLET PO (19:42)
[2021-04-04 06:00] VITALS: BP 122/68; PULSE 75; TEMP 36.5; O2SAT 97
[2021-04-04] MEDS: Mineral Oil/Petrolatum,White 106 GM Tube 1 APPL TOPICAL ×2 (09:42→15:00)
[2021-04-04 16:40] VITALS: BP 129/59; PULSE 89; TEMP 36.9
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
[2021-04-04] MEDS: Acetaminophen 325 MG TABLET 650 MG PO (19:14)
[2021-04-04] MEDS: OLANZapine 10 MG TABLET PO (20:42)
[2021-04-04] MEDS: hydrOXYzine HCL 25 MG TABLET PO (20:45)
[2021-04-05 06:00] VITALS: BP 126/62; PULSE 78; RESP 18; TEMP 36.8; O2SAT 98
[2021-04-05] MEDS: Nicotine 21 MG PATCH.TD24 TRANSDERMA (09:32)
[2021-04-05] MEDS: FLUoxetine HCl 10 MG CAPSULE PO (09:32)
[2021-04-05] MEDS: Mineral Oil/Petrolatum,White 106 GM Tube 1 APPL TOPICAL ×2 (09:36→21:46)
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
[2021-04-05 16:00] VITALS: BP 104/57; PULSE 106; TEMP 37
--- NOTE | 2021-04-05 20:46 | PC.NURSE ---
Pt signed a Three Day Notice on Wednesday04/05/2021 up on 04/10/2021.
[2021-04-05] MEDS: hydrOXYzine HCL 25 MG TABLET PO (22:16)
[2021-04-06 06:00] VITALS: BP 117/62; PULSE 97; RESP 18; TEMP 36.7; O2SAT 97
[2021-04-06] MEDS: FLUoxetine HCl 10 MG CAPSULE PO (09:36)
--- NOTE | 2021-04-06 11:13 | PC.NURSE ---
Pt retracted 3-day on Tuesday, April 06, 2021
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
[2021-04-06] MEDS: Mineral Oil/Petrolatum,White 106 GM Tube 1 APPL TOPICAL (14:33)
[2021-04-06 16:19] VITALS: BP 125/71; PULSE 88
[2021-04-06] MEDS: OLANZapine 10 MG TABLET PO (19:33)
[2021-04-07 05:57] VITALS: BP 114/64; PULSE 92; RESP 18; TEMP 36.6; O2SAT 98
[2021-04-07] MEDS: FLUoxetine HCl 10 MG CAPSULE PO (10:14)
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
[2021-04-07] MEDS: Acetaminophen 325 MG TABLET 650 MG PO (11:32)
[2021-04-07 18:00] VITALS: BP 135/71; PULSE 96
[2021-04-07] MEDS: OLANZapine 10 MG TABLET PO (20:28)
[2021-04-08 06:00] VITALS: BP 101/53; PULSE 74; RESP 18; TEMP 36.5; O2SAT 97
[2021-04-08] MEDS: FLUoxetine HCl 10 MG CAPSULE PO (08:56)
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
[2021-04-08 10:51] LABS: COVID-19 Test Negative (Negative)
[2021-04-08] MEDS: hydrOXYzine HCL 25 MG TABLET PO (16:43)
== END 2021-04-08 17:51 | DRG 750 ==
LOC: HO.ED 03-31 09:32 → HO.PM5 03-31 18:01
PROVIDERS: Nurse Practitioner Family; Admitting Provider Psychiatry & Neurology Psychiatry; Emergency Provider Emergency Medicine; Visit Provider Psychiatry & Neurology Psychiatry
DX: F25.1 Schizoaffective disorder, depressive type (principal); R45.851 Suicidal ideations; F84.0 Autistic disorder; F43.10 Post-traumatic stress disorder, unspecified; Z20.822 Contact with and (suspected) exposure to COVID-19; Z79.899 Other long term (current) drug therapy
CPT/HCPCS: 36415; 80053; 80061; 80307; 85025; 87635; 93005; 99285

== ENCOUNTER 2023-11-08 10:09 | Outpatient (REF) | payer MEDICAID, SELFPAY ==
[2023-11-08 11:26] LABS: MANUAL DIFF FLAG NO
[2023-11-08 11:32] LABS: Basophils Percent Auto 0.6 % (0-2); Eosinophils Absolute Auto 0.1 X10*3/uL (0.0-0.4); Hematocrit 48.5 % (42.0-52.0); Hemoglobin 16.2 g/dl (14.0-18.0); Imm Gran Abs Auto 0.02 X10*3/uL (0.00-0.03); Imm Gran Pct Auto 0.3 % (0.0-0.4); Lymphocytes Absolute Auto 1.3 X10*3/uL (1.2-4.9); Lymphocytes Percent Auto 17.8 % (20-40); Mean Corpuscular HGB Conc 33.4 g/dl (31.0-36.0); Mean Corpuscular Hemoglobin 29.5 pg (27.0-33.0); Mean Corpuscular Volume 88.3 fL (80.0-98.0); Mean Platelet Volume 10.1 fL (9.4-12.4); Monocytes Absolute Auto 0.4 X10*3/uL (0.1-1.2); Neutrophils Absolute Auto 5.3 x10*3/uL (2.0-8.3); Neutrophils Percent Auto 74.3 % (45-73); Platelet Count 284 X10*3/uL (160-400); Red Blood Count 5.49 X10*6/uL (4.60-5.80); Red Cell Distribution Width 13.6 % (11.0-16.0); White Blood Count 7.2 X10*3/uL (4.8-10.8)
[2023-11-08 11:44] LABS: Estimated Average Glucose 97 mg/dL
[2023-11-08 12:02] LABS: Alanine Aminotransferase 17 U/L (0-40); Albumin Level 4.5 g/dL (3.5-5.0); Alkaline Phosphatase 122 U/L (39-117); Anion Gap 12 (12-20); Aspartate Amino Transferase 16 U/L (5-37); Bilirubin Total 0.4 mg/dL (0.0-1.0); Blood Urea Nitrogen 12 mg/dL (9-16); Calcium 9.6 mg/dL (8.4-10.2); Carbon Dioxide 23 mmol/L (22-29); Chloride 110 mmol/L (96-108); Cholesterol 155 mg/dL (<200); Estimated Glomerular Filt Rate > 60; Glucose Random 94 mg/dL (60-115); HDL Cholesterol 31 mg/dL (>40); LDL Cholesterol Calculated 103 mg/dL (<100); Potassium 4.1 mmol/L (3.3-5.1); Sodium 141 mmol/L (135-145); Total Protein 7.6 g/dL (6.5-8.0); Triglycerides 107 mg/dL (<150)
[2023-11-08 12:06] LABS: B Type Natriuretic Peptide < 10 pg/mL (<100)
== END 2023-11-08 10:10 | disposition home or self-care (01) ==
LOC: HO.HHCL 10:09
PROVIDERS: Visit Provider Internal Medicine Geriatric Medicine
DX: R06.02 Shortness of breath (principal); F25.9 Schizoaffective disorder, unspecified; E66.9 Obesity, unspecified; Z95.2 Presence of prosthetic heart valve; Q21.3 Tetralogy of Fallot
CPT/HCPCS: 36415; 80053; 80061; 83036; 83880; 85025

== ENCOUNTER 2023-12-23 08:30 | Emergency (ER) | payer MEDICAID, SELFPAY ==
--- NOTE | 2023-12-23 08:45 | ED_ITS ---
HPI - Psych General Chief Complaint: Psychiatric Symptoms Stated Complaint: SI W/ PLAN PER EMS Source: patient, EMS and old records reviewed Mode of arrival: EMS Limitations: no limitations History of Present Illness ED Provider: AMARJIT RIVERA Narrative: 23 yo male with PMH of schizoaffective disorrder, PTSD, autism here with c/o depression and SI - has felt like this for 6 weeks. He notes these symptoms are persistent and worsening. He plans to jump into traffic. MD complaint: suicidal ideation and feels depressed Onset (ago): week(s) (6) Duration: constant History of same: Yes Relieving factors: none Exacerbating factors: other Context: significant life stressor Associated psychiatric symptoms: depression and suicidal ideation Associated symptoms: denies other symptoms Treatments prior to arrival: none If self harm: admits thoughts of self harm and has plan Related Data Previous Rx's ?Medication ?Instructions ?Recorded acetaminophen 325 mg tablet 650 mg (2 x 325 mg) PO Q6H PRN 04/08/21 Headache/Pain Mild Scale (1-3) #0 tabs aluminum-magnesium hydroxide 200 30 ml PO Q6H PRN Heartburn/Nausea 04/08/21 mg-200 mg/5 mL oral suspension #0 mL (MAG-AL) fluoxetine 10 mg capsule 10 mg PO DAILY 30 days #30 caps 04/08/21 hydroxyzine HCl 25 mg tablet 25 mg PO TID PRN Anxiety 30 days 04/08/21 #60 tabs magnesium hydroxide 400 mg/5 mL 30 ml PO DAILY PRN Constipation #0 04/08/21 oral suspension (Milk of Magnesia) mL olanzapine 10 mg tablet 10 mg PO BEDTIME 30 days #30 tabs 04/08/21 Allergies Allergy/AdvReac Type Severity Reaction Status Date / Time No Known Allergies Allergy Verified 12/23/23 08:52 [No Known Allergies*] Review of Systems 2 Review of Systems: Constitutional : No Fever, No Chills ENT/Mouth : No Ear Pain, No Nasal Congestion, No sore throat Eyes: No Eye Pain, No Swelling, No Redness Cardiovascular : No Chest Pain, No SOB Respiratory : No Cough, No Sputum, No Dyspnea Gastrointestinal : No Nausea, No Vomiting, No Diarrhea, No Hematochezia, No Melena Genitourinary : No Dysuria, No Urinary Frequency, No Hematuria Musculoskeletal : No Myalgias Skin : No Skin Lesions, No rash Neuro : No Weakness, No Numbness, No Paresthesias, No Dizziness, No Headache Psych : positive Anxiety, positive Depression, positive SI no HI All other systems reviewed and are negative [facility] Past Medical History Attestation statement: The following information was validated with the patient. Source: old records reviewed Medical History Schizoaffective disorder, bipolar type Complex posttraumatic stress disorder Autism spectrum disorder Schizoaffective disorder, depressive type Schizophrenia Heart murmur Surgical History History of open heart surgery Social History Social History Household Members: None Housing: Homeless Do you presently have visiting nurse or other home services: No Alcohol intake: unknown Patient Tobacco Use Status: Never used Tobacco Smoked in Last 30 Days: No Use of substances other than those prescribed or required for medical reasons: No Substance Use Type: Marijuana Advance Directives: Yes Advance Directives on File: Yes Advance Directives Date on File: 02/27/21 Sexual orientation: Straight/Heterosexual Physical Exam 2 Vital Signs: Vital Signs: Last Vital Signs Temp 98.1 F 12/23/23 09:08 Pulse 82 12/23/23 09:08 Resp 20 12/23/23 09:08 BP 114/65 12/23/23 09:08 Pulse Ox 96 12/23/23 09:08 O2 Del Method Room Air 12/23/23 09:08 BMI result Body Mass Index 33.9 Appearance: Alert. Oriented X3. No acute distress. Eyes: Pupils equal, round and reactive to light. ENT: Pharynx normal. Neck: Normal inspection. Neck supple. CVS: Normal heart rate and rhythm. Pulses normal. Respiratory: No respiratory distress. Breath sounds normal. Abdomen: Soft and nontender. Skin: Skin warm and dry. Normal skin color. Normal skin turgor. Extremities: No lower extremity edema. No calf ttp Neuro: Oriented X 3. No motor deficit. No sensory deficit. CN2-12 intact Course Course Course Narrative: observation care revealed that the patient does NOT meet psychiatric necessity for hospitalization. final disposition discussed with the patient. The patient completed observation care at 110pm cleared by CARE team senior care has no concerns. Medical Decision Making Medical Decision Making MDM Narrative: 23 yo male with PMH of schizoaffective disorrder, PTSD, autism here with c/o depression and SI at this time no medical complaints or issues. He denies acting on the plan. Will obtain basic labs and CARE team consult Differential Diagnosis Differential Diagnoses: The differential diagnosis associated with the presentation includes depression, SI Admission/Observation Consideration of admission/observation: Escalation of care including admission/observation considered physician observation started at 905am Consult Healthcare Provider Management of the patient was discussed with: Behavioral Health Provider Lab Data [facility] Lab Attestation statement: I reviewed the patient's lab results. 12/23/23 09:20 12/23/23 09:20 Labs: Lab Results 12/23/23 12/23/23 Range/Units 09:19 09:20 WBC 7.4 (4.8-10.8) X10*3/uL RBC 5.27 (4.60-5.80) X10*6/uL Hgb 15.7 (14.0-18.0) g/dl Hct 45.3 (42.0-52.0) % MCV 86.0 (80.0-98.0) fL MCH 29.8 (27.0-33.0) pg MCHC 34.7 (31.0-36.0) g/dl RDW 13.9 (11.0-16.0) % Plt Count 219 (160-400) X10*3/uL MPV 10.1 (9.4-12.4) fL Immature Gran % (Auto) 0.3 (0.0-0.4) % Neut % (Auto) 79.2 H (45-73) % Lymph % (Auto) 13.8 L (20-40) % [place] % (Auto) 5.5 (2-11) % Eos % (Auto) 0.8 (0-4) % Baso % (Auto) 0.4 (0-2) % Lymph # (Auto) 1.0 L (1.2-4.9) X10*3/uL [place] # (Auto) 0.4 (0.1-1.2) X10*3/uL Eos # (Auto) 0.1 (0.0-0.4) X10*3/uL Baso # (Auto) 0.0 (0.0-0.2) X10*3/uL Abs Immat Gran (auto) 0.02 (0.00-0.03) X10*3/uL Absolute Neuts (auto) 5.9 (2.0-8.3) x10*3/uL Absolute Nucleated RBC 0.000 (0.0-0.012) X10*3/uL Nucleated RBC % (auto) 0.0 (0.0-0.2) /100WBC Sodium 140 (135-145) mmol/L Potassium 4.3 (3.3-5.1) mmol/L Chloride 109 H (96-108) mmol/L Carbon Dioxide 23 (22-29) mmol/L Anion Gap 12 (12-20) BUN 10 (9-16) mg/dL Creatinine 0.75 (0.5-1.4) mg/dL Estim Creat Clear Calc 160.0 Estimated GFR > 60 Random Glucose 90 (60-115) mg/dL Calcium 9.0 D (8.4-10.2) mg/dL Magnesium 2.1 (1.6-2.6) mg/dL Total Bilirubin 0.4 (0.0-1.0) mg/dL Direct Bilirubin 0.1 (0.0-0.5) mg/dL AST 26 (5-37) U/L ALT 23 (0-40) U/L Alkaline Phosphatase 121 H (39-117) U/L Total Protein 7.0 (6.5-8.0) g/dL Albumin 4.3 (3.5-5.0) g/dL Urine Color Yellow Urine Appearance Clear Urine pH 5.5 (5.0-9.0) Ur Specific [place] 1.025 (1.005-1.025) Urine Protein Negative (Neg-Trace) mg/dL Urine Glucose (UA) Negative (Negative) mg/dL Urine Ketones Trace (Negative) mg/dL Urine Blood Negative (Negative) Urine Nitrite Negative (Negative) Ur Leukocyte Esterase Negative (Negative) Urine Opiates Screen Not Detected (Not Detect) Ur Buprenorphine Scrn Not Detected (Not Detect) ng/mL Ur Oxycodone Screen Not Detected (Not Detect) ng/mL Urine Methadone Screen Not Detected (Not Detect) ng/mL Urine Fentanyl Screen Not Detected (Not Detect) Ur Barbiturates Screen Not Detected (Not Detect) Ur Phencyclidine Scrn Not Detected (Not Detect) Ur Amphetamines Screen Not Detected (Not Detect) U Benzodiazepines Scrn Not Detected (Not Detect) Urine Cocaine Screen Not Detected (Not Detect) U Marijuana (THC) Screen POSITIVE H (Not Detect) Ethyl Alcohol < 10 mg/dL Independent Historian Clinical information obtained from an independent historian. History obtained from or confirmed by: EMS External Record Review External record reviewed: Inpatient record Discharge Plan Discharge Clinical Impression: Suicidal ideation Patient Disposition: Home, Self-Care Instructions: Help Prevent Suicide (ED) Additional Instructions: follow up with your outpatient providers return for any worsening symptoms or concerns. Prescriptions: No Action olanzapine 10 mg Tablet 10 mg PO BEDTIME 30 Days Qty: 30 0RF acetaminophen 325 mg Tablet 650 mg PO Q6H PRN (Reason: Headache/Pain Mild Scale (1-3)) Qty: 0 0RF fluoxetine 10 mg Capsule 10 mg PO DAILY 30 Days Qty: 30 0RF hydroxyzine HCl 25 mg Tablet 25 mg PO TID PRN (Reason: Anxiety) 30 Days Qty: 60 0RF magnesium hydroxide [Milk of Magnesia] 400 mg/5 mL Suspension 30 ml PO DAILY PRN (Reason: Constipation) Qty: 0 0RF MAG-AL 200-200 mg/5 mL Suspension 30 ml PO Q6H PRN (Reason: Heartburn/Nausea) Qty: 0 0RF Interventions: Tripp-Suicide Risk Severity Scale Last Done: 12/23/23 08:53 Print Language: Greenlandic
[2023-12-23 08:51] VITALS: BP 124/75; PULSE 79; O2SAT 96; BMI 33.9
[2023-12-23 09:08] VITALS: BP 114/65; PULSE 82; RESP 20; TEMP 36.7; O2SAT 96
[2023-12-23 09:25] LABS: MANUAL DIFF FLAG NO
[2023-12-23 09:26] LABS: Basophils Percent Auto 0.4 % (0-2); Eosinophils Absolute Auto 0.1 X10*3/uL (0.0-0.4); Eosinophils Percent Auto 0.8 % (0-4); Hematocrit 45.3 % (42.0-52.0); Hemoglobin 15.7 g/dl (14.0-18.0); Imm Gran Abs Auto 0.02 X10*3/uL (0.00-0.03); Imm Gran Pct Auto 0.3 % (0.0-0.4); Lymphocytes Percent Auto 13.8 % (20-40); Mean Corpuscular HGB Conc 34.7 g/dl (31.0-36.0); Mean Corpuscular Hemoglobin 29.8 pg (27.0-33.0); Mean Platelet Volume 10.1 fL (9.4-12.4); Monocytes Absolute Auto 0.4 X10*3/uL (0.1-1.2); Monocytes Percent Auto 5.5 % (2-11); Neutrophils Absolute Auto 5.9 x10*3/uL (2.0-8.3); Neutrophils Percent Auto 79.2 % (45-73); Platelet Count 219 X10*3/uL (160-400); Red Blood Count 5.27 X10*6/uL (4.60-5.80); Red Cell Distribution Width 13.9 % (11.0-16.0); White Blood Count 7.4 X10*3/uL (4.8-10.8)
[2023-12-23 09:35] LABS: Amphetamine Screen Urine Not Detected (Not Detect); Barbiturates, Urine Not Detected (Not Detect); Benzodiazepines Screen Urine Not Detected (Not Detect); Buprenorphine Scr Not Detected (Not Detect); Cannabinoid Screen Urine POSITIVE (Not Detect); Cocaine Screen Urine Not Detected (Not Detect); Fentanyl, urine Not Detected (Not Detect); Methadone Screen, Urine Not Detected (Not Detect); Opiate Screen Urine Not Detected (Not Detect); Oxycodone Screen Urine Not Detected (Not Detect); Phencyclidine Screen Urine Not Detected (Not Detect)
[2023-12-23 09:41] LABS: Alanine Aminotransferase 23 U/L (0-40); Albumin Level 4.3 g/dL (3.5-5.0); Alkaline Phosphatase 121 U/L (39-117); Anion Gap 12 (12-20); Aspartate Amino Transferase 26 U/L (5-37); Bilirubin Direct 0.1 mg/dL (0.0-0.5); Bilirubin Total 0.4 mg/dL (0.0-1.0); Blood Urea Nitrogen 10 mg/dL (9-16); Carbon Dioxide 23 mmol/L (22-29); Chloride 109 mmol/L (96-108); Estimated Glomerular Filt Rate > 60; Ethanol < 10 mg/dL; Glucose Random 90 mg/dL (60-115); Magnesium 2.1 mg/dL (1.6-2.6); Potassium 4.3 mmol/L (3.3-5.1); Sodium 140 mmol/L (135-145)
--- NOTE | 2023-12-23 11:11 | PC.NURSE ---
1:1 at bedside, pt calm/cooperative. reporting recent hx of SI with plan over the past several weeks. changed into hospital clothes. Belongings secured closet by POD lower right shelf
[2023-12-23 11:12] LABS: Appearance Urine Clear; Color Urine Yellow; Glucose Urine UA Negative (Negative); Leukocyte Esterase Urine Negative (Negative); Nitrite Urine Negative (Negative); PH 5.5 (5.0-9.0); Specific Gravity - Urine 1.025 (1.005-1.025); Urine Blood Negative (Negative); Urine Ketones Trace mg/dL (Negative); Urine Protein Negative (Neg-Trace)
[2023-12-23 13:22] VITALS: BP 109/77; PULSE 72; RESP 16; TEMP 36.6; O2SAT 99
== END 2023-12-23 13:25 | disposition home or self-care (01) ==
PROVIDERS: Emergency Provider Emergency Medicine
DX: F33.1 Major depressive disorder, recurrent, moderate (principal); R45.851 Suicidal ideations; Z51.81 Encounter for therapeutic drug level monitoring; Z79.899 Other long term (current) drug therapy
CPT/HCPCS: 36415; 80048; 80076; 80307; 81003; 83735; 85025; 99284; S9485

== ENCOUNTER → 2024-04-19 12:51 | Outpatient (REF) | payer MEDICAID, SELFPAY ==
--- NOTE | 2024-04-19 13:06 | ECG_ITS ---
Test Reason : Z79.899 Blood Pressure : */* mmHG Vent. Rate : 80 BPM Atrial Rate : 80 BPM P-R Int : 158 ms QRS Dur : 172 ms QT Int : 416 ms P-R-T Axes : 30 -47 43 degrees QTcB Int : 479 ms Normal sinus rhythm Right bundle branch block Left anterior fascicular block Bifascicular block Minimal voltage criteria for LVH, may be normal variant ( R in aVL ) Abnormal ECG When compared with ECG of 03-Apr-2021 13:15, No significant change was found Referred By: Nithya Jalloh Electronically Signed By: KEYONA DIAZ MD
--- OUTSIDE RECORDS SUMMARY | 2024-04-19 15:13 | XMS_ITS | Clinical Summary ---
Author Organization [facility] it[facility] Address [address] [place] [address] Care Team Providers Care Automobile Upholstery Trim Installer Name Role Phone Unavailable Primary Care Provider Unavailabl e Social History Tobacco Use Types Packs/Day Years Used Date Smoking Tobacco: Never Assessed Sex and Gender Information Value Date Recorded Sex Assigned at Not on file Legal Sex Male 3:00 AM EST Gender Identity Not on file Sexual Orientation Not on file Plan of Treatment Health Maintenance Due Date Last Done Comments HPV Vaccines (1 - Male 3-dos e series) 05/17/2015 Meningococcal B Vacine (1 of 2 - Standard) 2016 DTaP,Tdap,and Td Vaccines (1 - Tdap) 05/17/2019 Hepatitis B Vaccines (1 of 3 - 19+ 3-dose series) 05/17/2019 Depression Screening 01/18/2022 HIV Screening 01/18/2022 Hepatitis C Screening 01/18/2022 Social Influencers of Health Screening 01/18/2022 COVID-19 Vaccine (2023-2 5 season) 2023 Influenza Vaccine (#1) 2023 HIB Vaccines Aged Out No longer eligi ble based on patient's age to complete this topic Hepatitis A Vaccines Aged Out No long er eligible based on patient's age to complete this topic IPV Vaccines Aged Out No longer eligi ble based on patient's age to complete this topic MMR Vaccines Aged Out No longer eligi ble based on patient's age to complete this topic Meningococcal ACWY Vaccine Aged Out N o longer eligible based on patient's age to complete this topic Pneumococcal Vaccine: Pediat rics (0 to 5 Years) and At-Risk Patients (6 to 64 Years) Aged Out No longer eligible b ased on patient's age to complete this topic RSV Immunization Patients Un earnest 20 months Aged Out No longer eligible b ased on patient's age to complete this topic Varicella Vaccines Aged Out No longer eligible based on patient's age to complete this topic
--- OUTSIDE RECORDS SUMMARY | 2024-04-19 15:13 | XMS_ITS | Encounter Summary ---
Author Organization [employer] Address [address] [place] [address] 7 [place] [address] Care Team Providers Care Tectonophysicist Name Role Phone Name, Paramjit BRIAN Primary Care Provider Encounter Details Date Type Department Care Team (Latest Contact Info) Description 02/03/2019 Abstract [facility] CONVERSIONS Dental, Provider, DDS Social History Tobacco Use Types Packs/Day Years Used Date Smoking Tobacco: Never Assessed Sex and Gender Information Value Date Recorded Sex Assigned at Male 12/15/2021 10:24 AM EDT Legal Sex Male 10:24 AM EDT Gender Identity Male 12/15/2021 10:24 AM EDT Sexual Orientation Don't know 12/15/2021 10 :24 AM EDT documented as of this encounter Plan of Treatment Upcoming Encounters Date Type Department Care Team (Late st Contact Info) Description 05/05/2024 10:30 AM EDT Office Visit [facility] ADULT DENTAL [address] [place] [address] Juan Lopez, DMD [address] [place] [address] 06/28/2024 3:45 PM EDT Office Visit [facility] MEDICINE [address] [place] [address] Name, MD Paramjit [address] [place] [address] documented as of this encounter Visit Diagnoses Not on filedocumented in this encounter Care Teams Tectonophysicist Relationship Specialty Start Date End Date Name, MD Paramjit [address] [place] [address] PCP - General Internal Medicine 07/13/23 documented as of this encounter
--- OUTSIDE RECORDS SUMMARY | 2024-04-19 15:13 | XMS_ITS | Encounter Summary ---
Author Organization [employer] Address [address] [facility] [address] [place] [address] Care Team Providers Care Turntable Man Name Role Phone Name, Paramjit BRIAN Primary Care Provider [phone] Reason for Visit * Reason Onset Date Comments Med Refill 04/11/2024 Encounter Details Date Type Department Care Team (Late st Contact Info) Description 04/11/2024 Refill [facility] MEDICINE [address] [place], [place] [phone] Name, MD Paramjit [address] [place] [address] Social History Tobacco Use Types Packs/Day Years Used Date Smoking Tobacco: Never Smokeless Tobacco: Never Alcohol Use Standard Drinks/Week Comments Never 0 (1 standard drink = 0.6 oz pur e alcohol) Depression Answer Date Recorded Patient Health Questionnaire-9 Score 7 07/13/2023 Patient Health Questionnaire-9 Score 7 07/13/2023 Last PHQ-9: Questionnaire Data Not on file 0 07/13/2023 Housing Stability Answer Date Recorded What is your housing situation today? I have dalia vail 07/13/[address] you li ve. Do you have problems with any of the following? None of the above 07/13/2023 Food Insecurity Answer Date Recorded Within the past 12 months, y ou worried that your food would run out before you got money to buy more: Never True 07/13/2023 Within the past 12 months,th e food you bought just didn't last and you didn't have enough money to get more: Never True Transportation Answer Date Recorded In the past 12 months, has l ack of transportation kept you from medical appts, meetings, work or from getting things needed for daily living? No 07/13/2023 Utilities Answer Date Recorded In the past 12 months, has t he electric, gas, oil or water company threatened to shut off services in your home? No 07/13/2023 Depression Answer Date Recorded Patient Health Questionnaire-2 Score 2 07/13/2023 Sex and Gender Information Value Date Recorded Sex Assigned at Male 12/15/2021 10:24 AM EDT Legal Sex Male 10:24 AM EDT Gender Identity Male 12/15/2021 10:24 AM EDT Sexual Orientation Don't know 12/15/2021 10 :24 AM EDT documented as of this encounter Miscellaneous Notes * Telephone Encounter - Art Gastelum - 04/17/2024 12:38 PM EST Tc from Amniah with N requesting status on prior message. Contact pt at [phone] * Telephone Encounter - Jeanette Allred - 04/11/2024 8:50 AM EST TC from pt requesting medication refill. Medications needing refill : aspirin 81 MG chewable tablet To be sent to: [facility] - [place], [place] - [place], [place] - [address] documented in this encounter Plan of Treatment Upcoming Encounters Date Type Department Care Team (Late st Contact Info) Description 05/05/2024 10:30 AM EDT Office Visit [facility] ADULT DENTAL [address] [place] [address] Juan Lopez, FRANNY [address] [place] [address] 06/28/2024 3:45 PM EDT Office Visit [facility] MEDICINE [address] [place] [address] Name, MD Paramjit [address] [place] [address] documented as of this encounter Visit Diagnoses Not on filedocumented in this encounter Additional Health Concerns Assessment Noted Time PHQ-9 Depression Total Score: 7 07/13/19 24 10:22 AM EDT documented as of this encounter Care Teams Turntable Man Relationship Specialty Start Date End Date Name, MD Paramjit [address] [place] [address] PCP - General Internal Medicine 07/13/23 documented as of this encounter
--- OUTSIDE RECORDS SUMMARY | 2024-04-19 15:13 | XMS_ITS | Encounter Summary ---
Author Organization [employer] Address [address] [facility] [address] [place] [address] Care Team Providers Care Dulite Machine Bluer Name Role Phone Name, Paramjit BRIAN Primary Care Provider [phone] Reason for Visit * Reason Onset Date Comments Medication Question 07/14/2023 Encounter Details Date Type Department Care Team ([facility] st Contact Info) Description 07/14/2023 Telephone [facility] MEDICINE [address] [place], [place] [phone] Name, MD Paramjit [address] [place], [place] [phone] Medication Question Social History Tobacco Use Types Packs/Day Years [...] encounter Miscellaneous Notes * Telephone Encounter - Gordon Cabrera RN - 07/14/2023 2:06 PM EDT Pharmacy updated into pt.'s chart. * Telephone Encounter - Harman Vallecillo - 07/14/2023 9:33 AM EDT Tc from pt requesting reporting he will no longer be using [facility] pharmacy and is requesting new scripts to be sent to [facility] - [place] - [facility] [address] [facility]. If any questions please contact pt at [phone]. documented in this encounter Plan of Treatment Upcoming Encounters Date Type Department Care Team ([facility] st Contact Info) Description 05/05/2024 10:30 AM EDT Office Visit [facility] ADULT DENTAL [address] [place] [address] Juan Lopez DMD [address] [place] [address] 06/28/2024 3:45 PM EDT Office Visit [facility] MEDICINE [address] [place] [address] Name, MD Paramjit [address] [place] [address] documented as of this encounter Visit Diagnoses Not on filedocumented in this encounter Additional Health Concerns Assessment Noted Time PHQ-9 Depression Total Score: 7 07/13/19 24 10:22 AM EDT documented as of this encounter Care Teams Dulite Machine Bluer Relationship Specialty Start Date End Date Name, MD Paramjit [address] [place] [address] PCP - General Internal Medicine 07/13/23 documented as of this encounter
--- OUTSIDE RECORDS SUMMARY | 2024-04-19 15:13 | XMS_ITS | Patient Health Record ---
Author Organization [facility] Address [address] [place], [place] [id number] Care Team Providers Care Insurance Billing Clerk Name Role Phone [facility], Medical Services Primary Care Provider Maye Lam Unavailable Allergies No Known Allergies Reason For Referral No Information Medications Medication SIG (Take, Route, Frequency, Duration) Notes Start Date End Date Status aspirin 81 mg 1 tab(s) chewed once a day Verified by medicine bottle Active OLANZapine 10 mg 1 tab(s) orally once a day in AM Verified by medicine bottle Active OLANZapine 20 mg 1 tab(s) orally once a day Verified by medicine bottle Active FLUoxetine 20 mg 1 cap(s) orally once a day Verified by medicine bottle Active Social History Tobacco Use: Social History Observation Description Date Details (start date - stop date) Current Smoker NA - NA Tobacco Use Assessment MU Question Answer Notes What is your current smoking status? current smo ker How often do you smoke? every day How many cigarettes a day do you smoke? 11-20 How soon after you wake up do you smoke your fir st cigarette? 6-30 minutes Are you interested in quitting? ready to quit Problems Problem Type SNOMED Code ICD Code Onset Dates Problem Status W/U Status Risk Notes Problem Obesity (640072438) Obesity, unspecified (E66.9) Active confirmed Problem Cannabis abuse (33765720) Cannabis abuse, uncomplicated (F12.10) Active confirmed Problem Tobacco user (148077933) Nicotine dependence, cigarettes, uncomplicated (F17.210) Active confirmed Problem Schizoaffective disorder (27841603) Schizoaffective disorder, unspecified (F25.9) Active confirmed Problem Abnormal auditory function study (07240126314137) Abnormal auditory function study (R94.120) Active confirmed Problem Body mass index 30.00 to 34.99 (327808305488329) Body mass index (BMI) 34.0-34.9, adult (Z68.34) Active confirmed Problem Heart valve replacement (69448487) Presence of other heart-valve replacement (Z95.4) Active confirmed Problem Sheltered homelessness (056570634243438) Sheltered homelessness (Z59.01) Active confirmed Plan Of Treatment No Information Insurance Providers Payer Name Payer Address Payer Phone Subscriber Number Group Number Insured Name Patient Relationship to Insured Coverage Start Date Coverage End Date [place] Medicaid C3 [address] [place], [place] [id number] Toñito Trevizo Self - patient is the insured 2 Medical (General) History Medical History History ICD Code Cannabis use Homelessness issues Surgical History Surgery Date(Month/Year) two open heart surgeries--le aky valve: Washing Machine Installer: [facility] Hospitalization History Reason Date(Month/Year) age 14: [facility]: heart [facility]
--- OUTSIDE RECORDS SUMMARY | 2024-04-19 15:13 | XMS_ITS | Clinical Summary ---
Author Organization [employer] Address [address] [place] [address] Care Team Providers Care Nuclear Equipment Test Engineer Name Role Phone Name, Paramjit BRIAN Primary Care Provider [phone] Allergies Active Allergy Reactions Criticality Noted Date Comments Other 08/28/2022 Shellfish Allergy 07/09/2023 Medications * This document contains information received from the source organization and may not represent a complete record from that organization. prazosin (Minipress) 1 MG capsule Take 1 mg by mouth at bedtime. Active OLANZapine (ZyPREXA) 10 MG tablet TAKE 1 TABLET BY MOUTH IN THE MORNING AND TAKE 2 TABLETS AT NIGHT Active FLUoxetine (PROzac) 40 MG capsule Take 40 mg by mouth Once per day. 06/30/19 24 Active amoxicillin (Amoxil) 500 MG capsule Take 4 capsules (2,000 mg) by mouth 1 (one) time if needed (30-60 minutes before dental procedures) for up to 1 dose. 4 capsule 6 11/02/19 24 Active aspirin 81 MG chewable tablet Chew 1 tablet (81 mg) Once per day. 30 tablet 11 04/18/19 25 026 Active aspirin 81 MG chewable tablet Chew 1 tablet (81 mg) Once per day. 30 tablet 11 07/13/19 24 025 Discontinued(Re order (will not trigger notification to Pharmacy)) Active Problems Patient Care Coordination No te Formatting of this note migh t be different from the original. C3/CM Jeniffer Braga RN Problem Noted Date Diagnosed Date Abnormal auditory function study 02/07/2024 Cannabis abuse 02/07/2024 Sheltered homelessness 02/07/2024 Tobacco user 02/07/2024 Class 1 obesity 02/07/2024 Obesity 02/07/2024 Schizoaffective disorder 02/07/2024 Tetralogy of Fallot 07/13/2023 Overview (07/13/2023): Andrez 2000 and 2013 at [facility] (pulmonary valve replacement with bioprostetic valve) Class 2 obesity 07/09/2023 History of prosthetic heart valve 07/09/2023 Schizoaffective disorder, unspecified 08/21/2022 Encounters Date Type Department Care Team Description 04/11/2024 Refill [facility] [address] [place] [address] Name, MD Paramjit 02/10/2024 Telephone [facility] [address] [place] [address] Name, MD Paramjit No Show 02/07/2024 Telephone [facility] [address] [place] [address] Kate Barry MA Chart Prep 02/07/2024 Telephone [facility] [address] [place] [address] Kate Barry MA from Last 3 Months Immunizations Name Administration Dates Next Due HPV 9-Valent 09/06/2014 HPV, Quadrivalent 09/06/2014 Hep B, Adolescent or Pediatric 07/26/2018 Influenza Injectable Quadriv alant Preservative Free IIV4 MDCK 04/09/2016 Influenza injectable quadriv alent IIV4 with preservative 12/06/2014 Influenza injectable quadriv alent preservative free 02/16/2018,05/06/2017 Influenza, IIV3, injectable 02/16/2018,0 05/06/2017,04/09/2016,12/06 Influenza, seasonal, injecta ble, preservative free 11/02/2023 Meningococcal ACWY, unspecified 05/06/2017 Meningococcal MCV4P ACYW-135 05/06/2017 Pneumococcal Conjugate PCV 20 07/15/2023 Tdap 07/15/2023 Social History Tobacco Use Types Packs/Day Years Used Date Smoking Tobacco: Never Smokeless Tobacco: Never Tobacco Cessation:Counseling Given: Not Answered Alcohol Use Standard Drinks/Week Comments Never 0 [...] Don't know 12/15/2021 10 :24 AM EDT Last Filed Vital Signs Vital Sign Reading Time Taken Comments Blood Pressure 114/73 11/02/2023 10:57 AM EDT Pulse 87 11/02/2023 10:57 AM EDT Temperature 36.6 ??C (97.9 ??F) 11/02/2023 10:57 AM E DT Respiratory Rate 18 11/02/2023 10:57 AM EDT Oxygen Saturation 98% 11/02/2023 10:57 AM EDT Inhaled Oxygen Concentration - - Weight 102 kg (225 lb) 11/02/2023 10:57 AM EDT Height 165.1 cm (5' 5 ) 11/02/2023 10:57 AM EDT Body Mass Index 37.44 11/02/2023 10:57 AM EDT Plan of Treatment Upcoming Encounters Date Type Department Care Team (Late st Contact Info) Description 05/05/2024 10:30 AM EDT Office Visit [facility] [address] [place], [place] [phone] Juan Lopez, FRANNY [address] [place], [place] [phone] 06/28/2024 3:45 PM EDT Office Visit [facility] [address] [place], [place] [phone] Name, MD Paramjit [address] [place], [place] [phone] Health Maintenance Due Date Last Done Comments Chlamydia and Gonorrhea Screening 2000 HIV Screening 2000 HPV Vaccines (2 - Male 2-dose series) 03/09/2015 09/06/2014, 09/06/2014 Family Planning (PISQ) 05/17/2015 Hepatitis C Screening 2018 Hepatitis B Vaccines (2 of 3 - 3-dose series) 08/23/2018 07/26/2018 Hepatitis A Vaccines (1 of 2 - Risk 2-dose series) 05/17/2019 COVID-19 Vaccine ( - season) 2023 Alcohol/Substance Use Screening 07/12/2024 07/13/2023 Depression Screening 07/12/2024 07/13/2023, 07/13/19 24 SDOH Screening 07/12/2024 07/13/2023 Tobacco Screening 11/01/2024 11/02/2023 Lipid Panel 11/07/2028 11/08/2023 DTaP/Tdap/Td Vaccines (2 - Td or Tdap) 07/14/2033 07/15/2023 Zoster Vaccines (1 of 2) 2050 RSV Patients and Patients Aged 60 years or older (1 - 1-dose 75+ series) 05/17/2075 Meningococcal Vaccine Completed 05/06/2017, 018 Pneumococcal Vaccine: Pediatrics (0 to 5 Years) and At-Risk Patients (6 to 49) Years) Completed 07/15/2023 Influenza Vaccine Completed 11/02/2023, , 02/16/2018, Additional history exists HIB Vaccines Aged Out No longer eligi ble based on patient's age to complete this topic IPV Vaccines Aged Out No longer eligi ble based on patient's age to complete this topic RSV under 20 months Aged Out No longe r eligible based on patient's age to complete this topic Rotavirus Vaccines Aged Out No longer eligible based on patient's age to complete this topic Procedures Procedure Name Priority Date/Time Associated Diagnosis Comments LIPID PANEL, STANDARD Routine 11/08/2023 10:15 AM EDT Tetralogy of Fallot History of prosthetic heart valve Schizoaffective disorder, unspecified type (CMS/HCC) SOB (shortness of breath) from Last 3 Months or Most Recently Relevant to Health Maintenance Results * (ABNORMAL) Lipid Panel, Standard (11/08/2023 10:15 AM EDT) Triglycerides 107 <150 mg/dL [facility] Comment:Desirable Triglyceri de: less than 150 mg/dLBorderline High Triglyceride 150-199 mg/dLHigh Triglyceride: 200-499 mg/dLVery High Triglyceride: greater than or equal to 5OO mg/dL Cholesterol 155 <200 mg/dL [facility] Comment:Desirable Cholestero l: less than 200 mg/dLBorderline High Cholesterol: 200-239 mg/dLHigh Cholesterol: greater than 239 mg/dL LDL Cholesterol Calculated 103(H) <100 mg/dL [facility] Comment:Desirable LDL: less than 100 mg/dLNear Optimal/Above Optimal LDL: 110- 129 mg/dLBorderline High LDL: 130-159 mg/dLHigh LDL: 160-189 mg/dLVery High LDL: greater than or equal to 190 mg/dL HDL Cholesterol 31(L) >40 mg/dL [facility] Comment:Desirable HDL: great er than 40 mg/dL Note: This HDL assay may give artificially low results in patients with liver disease. Blood Venous blood specimen / Unknown 11/08/2023 10:15 AM EDT 11/08/2023 11:19 AM EDT us Paramjit Name LAB BLOOD ORDERABLES Final Resul t [facility] [address] [place] [address] [phone] from Last 3 Months or Most Recently Relevant to Health Maintenance Insurance [facility] STAND ADULT Care Teams Nuclear Equipment Test Engineer Relationship Specialty Start Date End Date Name, MD Paramjit [address] [place] [phone] PCP - General Internal Medicine 07/13/23
--- OUTSIDE RECORDS SUMMARY | 2024-04-19 15:13 | XMS_ITS | Encounter Summary ---
Author Organization [employer] Address [address] [place] [address] [address] [place] [address] Care Team Providers Care Imaging Technologist Name Role Phone Name, Paramjit BRIAN Primary Care Provider [phone] Reason for Visit * Reason Onset Date Comments New Patient 10/01/2022 Encounter Details Date Type Department Care Team (Late st Contact Info) Description 10/01/2022 Telephone [facility] [address] [place], [place] [phone] Td Corbin MD [address] [place], [place] [phone] New Patient Social History Tobacco Use Types Packs/Day Years Used Date Smoking Tobacco: Never Assessed Sex and Gender Information Value Date Recorded Sex Assigned at Male 12/15/2021 10:24 AM EDT Legal Sex Male 10:24 AM EDT Gender Identity Male 12/15/2021 10:24 AM EDT Sexual Orientation Don't know 12/15/2021 10 :24 AM EDT documented as of this encounter Miscellaneous Notes * Telephone Encounter - Karen Simon - 10/01/2022 11:02 AM EDT Pt has been 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 SINCE 10/01/2022 documented in this encounter Plan of Treatment Upcoming Encounters Date Type Department Care Team (Late st Contact Info) Description 05/05/2024 10:30 AM EDT Office Visit [facility] [address] [place] [address] Juan Lopez FRANNY [address] [place] [address] 06/28/2024 3:45 PM EDT Office Visit [facility] [address] [place], [place] [phone] Name, MD Paramjit [address] [place] [address] documented as of this encounter Visit Diagnoses Not on filedocumented in this encounter Care Teams Imaging Technologist Relationship Specialty Start Date End Date Name, MD Paramjit [address] [place] [phone] PCP - General Internal Medicine 07/13/23 documented as of this encounter
== END ==
LOC: HO.CARD 12:51
PROVIDERS: PCP Internal Medicine Geriatric Medicine; Visit Provider Registered Nurse
DX: Z79.899 Other long term (current) drug therapy (principal)
CPT/HCPCS: 93005

== ENCOUNTER → 2024-04-19 13:06 | Outpatient (BNV) | payer MEDICAID, SELFPAY | PROVIDERS: PCP Internal Medicine Geriatric Medicine; Visit Provider Internal Medicine Cardiovascular Disease | DX: I45.2 Bifascicular block (principal) | CPT/HCPCS: 93010 ==